=== PATIENT | male | born 1965 | race African-American/Black ===

== ENCOUNTER 2018-01-19 10:28 | Inpatient (IN) | payer MEDICAID ==
[~2018-01-19] VITALS: Ht 198.1 cm; Wt 88.5 kg
[2018-01-19] MEDS ORDERED: ASPIRIN 81MG TABLET PO ONE (11:15)
[2018-01-19 12:00] LABS: HEMATOCRIT. 37.3 % (42.0-52.0); HEMOGLOBIN. 12.7 g/dL (14.0-18.0); MEAN PLATELET VOLUME 6.8 fl (7.4-10.4); PLATELET 280 x1000/uL (130-400); RED BLOOD CELL COUNT 3.73 mill/uL (4.7-6.1); RED CELL DISTRIBUTION WIDTH 12.5 % (11.6-14.6)
[2018-01-19 12:02] LABS: CHLORIDE 100 mEq/L (98-107)
[2018-01-19 12:10] LABS: D-DIMER 1.71 mg/L FEU (<0.50); PARTIAL THROMBOPLASTIN TIME 32.7 sec (23.4-31.0)
[2018-01-19] MEDS ORDERED: SODIUM CHLORIDE 0.9% 1000ML BAG (SEPSIS BOLUS) IV ONE (12:30)
[2018-01-19] MEDS ORDERED: LEVOFLOXACIN 750MG PREMIX 150 ML IV ONE (12:30)
[2018-01-19 12:50] LABS: PLATELET ESTIMATE NORMAL
[2018-01-19] MEDS: NITROGLYCERIN 0.4MG TABLET SL SL PRN ×2 (14:03→16:50)
[2018-01-19] MEDS ORDERED: MORPHINE SULFATE 4 MG/ML CPJ (NOT FOR IM USE) IV ONE (17:00)
[2018-01-19] MEDS ORDERED: ONDANSETRON HCL 4MG/2ML INJ IV ONE (17:00)
[2018-01-19] MEDS ORDERED: MORPHINE SULFATE 10 MG/ML CPJ IV NR (17:15)
[2018-01-19] MEDS ORDERED: IOHEXOL-350 100 ML BOTTLE ONE (17:52)
[2018-01-19] MEDS ORDERED: IBUP-2029 PO (22:44)
[2018-01-19] MEDS ORDERED: CYCL10TA7 PO (22:44)
[2018-01-19 22:58] VITALS: BP 113/68
[2018-01-20] VITALS: BP 110/52
[2018-01-20] MEDS ORDERED: HYDROCODONE/ACETAMINOPHEN 5/325MG TABLET PO PRN
[2018-01-20] MEDS: IPRATROPIUM/ALBUTEROL 0.5-3(2.5)MG/3ML NEB HHN SCH ×6 (01:26→20:48)
[2018-01-20 04:00] VITALS: BP 122/60
[2018-01-20] MEDS ORDERED: GUAIFENESIN-DM 200MG-20MG/10ML UDC PO SCH (06:00)
[2018-01-20 08:00] VITALS: BP 102/65
[2018-01-20] MEDS: ENOXAPARIN 40MG/0.4ML SYR SUBCUT SCH (09:05)
[2018-01-20 12:00] VITALS: BP 103/63
[2018-01-20] MEDS ORDERED: KETOROLAC 30MG/ML VIAL IV PRN (13:15)
[2018-01-20] MEDS: CYCLOBENZAPRINE 10MG TABLET PO SCH ×2 (14:24→21:28)
[2018-01-20 16:00] VITALS: BP 104/64
[2018-01-20] MEDS ORDERED: IPRATROPIUM/ALBUTEROL 0.5-3(2.5)MG/3ML NEB HHN SCH (16:00)
[2018-01-20] MEDS: LEVOFLOXACIN 500MG PREMIX 100 ML IV SCH (16:06)
[2018-01-20] MEDS: ACETAMINOPHEN 325MG TABLET PO PRN (16:50)
[2018-01-20] MEDS: AZITHROMYCIN 500 MG in DEXT 5% WATER 250 ML IV SCH (17:48)
[2018-01-20 18:21] LABS: HEMATOCRIT. 34.9 % (42.0-52.0); HEMOGLOBIN. 11.8 g/dL (14.0-18.0); MEAN CORPUSCULAR HEMOGLOBIN 33.6 pg (28.0-32.0); MEAN CORPUSCULAR VOLUME 99.6 fL (80.0-94.0); MEAN PLATELET VOLUME 6.8 fl (7.4-10.4); PLATELET 295 x1000/uL (130-400); RED BLOOD CELL COUNT 3.51 mill/uL (4.7-6.1); RED CELL DISTRIBUTION WIDTH 12.3 % (11.6-14.6)
[2018-01-20 18:30] LABS: CLARITY URINE CLEAR (CLEAR); COLOR URINE YELLOW (YELLOW); KETONES URINE NEGATIVE (NEGATIVE); LEUKOCYTE ESTERASE URINE NEGATIVE (NEGATIVE); NITRITE URINE NEGATIVE (NEGATIVE); OCCULT BLOOD URINE NEGATIVE (NEGATIVE); PH URINE 6.5 (4.5-8.0); PROTEIN URINE NEGATIVE (NEGATIVE); SPECIFIC GRAVITY URINE 1.005 (1.005-1.030)
[2018-01-20 19:55] VITALS: BP 102/55
[2018-01-21] VITALS: BP 106/63
[2018-01-21 00:30] LABS: PLATELET ESTIMATE NORMAL
[2018-01-21] MEDS: IPRATROPIUM/ALBUTEROL 0.5-3(2.5)MG/3ML NEB HHN SCH ×6 (00:49→20:22)
[2018-01-21 04:00] VITALS: BP 106/57
[2018-01-21] MEDS: CYCLOBENZAPRINE 10MG TABLET PO SCH ×3 (05:45→21:02)
[2018-01-21 07:06] LABS: HEMATOCRIT. 35.2 % (42.0-52.0); HEMOGLOBIN. 11.9 g/dL (14.0-18.0); MEAN CORPUSCULAR HEMOGLOBIN 33.7 pg (28.0-32.0); MEAN CORPUSCULAR VOLUME 99.5 fL (80.0-94.0); MEAN PLATELET VOLUME 6.8 fl (7.4-10.4); PLATELET 304 x1000/uL (130-400); RED BLOOD CELL COUNT 3.54 mill/uL (4.7-6.1); RED CELL DISTRIBUTION WIDTH 12.4 % (11.6-14.6)
[2018-01-21 07:45] LABS: CHLORIDE 102 mEq/L (98-107)
[2018-01-21 08:41] VITALS: BP 118/55
[2018-01-21] MEDS: ENOXAPARIN 40MG/0.4ML SYR SUBCUT SCH (09:52)
[2018-01-21 10:04] LABS: BG CARBOXYHEMOGLOBIN 0.6 % (0.5-1.5); BG DEOXYHEMOGLOBIN 4.1 % (0.0-5.0); BG FRACTION INSPIRED OXYGEN 21; BG HCO3 ACT 27.8 mmol/L (22.0-26.0); BG METHEMOGLOBIN 0.1 % (0.0-1.5); BG OXYGEN SATURATION 95.9 % (92.0-98.5); BG OXYHEMOGLOBIN 95.2 % (94.0-97.0); BG PCO2 38.8 mmHg (35.0-45.0); BG PH 7.473 (7.350-7.450); BG PO2 80.2 mmHg (75.0-100.0); BG SAMPLE SITE RIGHT RADIAL; BG TOTAL HEMOGLOBIN 12.7 g/dL (12.0-18.0); BG VENT MODE ROOM AIR
[2018-01-21 11:57] LABS: PLATELET ESTIMATE NORMAL
[2018-01-21 12:38] VITALS: BP 112/64
[2018-01-21] MEDS: AZITHROMYCIN 500 MG in DEXT 5% WATER 250 ML IV SCH (14:14)
[2018-01-21 16:44] VITALS: BP 105/63
[2018-01-21] MEDS: LEVOFLOXACIN 500MG PREMIX 100 ML IV SCH (16:48)
[2018-01-21] MEDS: GUAIFENESIN/DM 600MG/30MG ER TAB 12HR PO PRN (18:16)
[2018-01-21 20:09] VITALS: BP 102/52
[2018-01-22] VITALS: BP 110/66
[2018-01-22] MEDS: IPRATROPIUM/ALBUTEROL 0.5-3(2.5)MG/3ML NEB HHN SCH ×4 (00:33→12:00)
[2018-01-22 04:00] VITALS: BP 106/50
[2018-01-22] MEDS: CYCLOBENZAPRINE 10MG TABLET PO SCH ×2 (05:47→14:10)
[2018-01-22 08:00] VITALS: BP 101/62
[2018-01-22 08:30] LABS: CHLORIDE 102 mEq/L (98-107)
[2018-01-22 08:37] LABS: HEMATOCRIT. 33.8 % (42.0-52.0); HEMOGLOBIN. 11.5 g/dL (14.0-18.0); MEAN CORPUSCULAR HEMOGLOBIN 33.7 pg (28.0-32.0); MEAN PLATELET VOLUME 6.6 fl (7.4-10.4); PLATELET 326 x1000/uL (130-400); RED BLOOD CELL COUNT 3.42 mill/uL (4.7-6.1); RED CELL DISTRIBUTION WIDTH 12.2 % (11.6-14.6)
[2018-01-22] MEDS: ENOXAPARIN 40MG/0.4ML SYR SUBCUT SCH (08:50)
[2018-01-22] MEDS: GUAIFENESIN/DM 600MG/30MG ER TAB 12HR PO PRN (08:50)
[2018-01-22] MEDS: ACETAMINOPHEN 325MG TABLET PO PRN (08:50)
[2018-01-22] MEDS ORDERED: BENZONATATE 100MG CAPSULE PO PRN (10:45)
[2018-01-22 12:00] VITALS: BP 101/51
[2018-01-22] MEDS ORDERED: NICOTINE 14MG PATCH TD SCH (14:00)
[2018-01-22 14:21] LABS: PLATELET ESTIMATE NORMAL
[2018-01-22 15:39] VITALS: BP 101/51
[2018-01-22 16:00] VITALS: BP 100/58
[2018-01-22] MEDS: LEVOFLOXACIN 500MG PREMIX 100 ML IV SCH (16:00)
== END 2018-01-22 16:55 | disposition home or self-care (01) | DRG 133 ==
LOC: ER 10:28 → 6WST 16:19 → EDBEDREQTM 16:34 → EDBEDREQ 16:34 → ENRESERV 18:50
PROVIDERS: ADMIT Internal Medicine; ATTEND Internal Medicine
DX: J96.00 Acute respiratory failure, unspecified whether with hypoxia or hypercapnia (principal); J18.9 Pneumonia, unspecified organism; E44.1 Mild protein-calorie malnutrition; E87.1 Hypo-osmolality and hyponatremia; J44.0 Chronic obstructive pulmonary disease with (acute) lower respiratory infection; J44.1 Chronic obstructive pulmonary disease with (acute) exacerbation; D53.9 Nutritional anemia, unspecified; R91.8 Other nonspecific abnormal finding of lung field; F17.210 Nicotine dependence, cigarettes, uncomplicated; G89.29 Other chronic pain; M25.561 Pain in right knee; R07.89 Other chest pain; Z68.22 Body mass index [BMI] 22.0-22.9, adult
CPT/HCPCS: 36415; 36600; 71045; 71275; 80048; 82375; 82805; 83605; 83880; 84484; 85379; 87804; 93005; 93306; 94640; 96365; 96366; 96375; 99285; J0456; J1650; J1956; J2270; J2405; J7030; J7050; J7060; J7620; Q9967

== ENCOUNTER 2022-05-20 11:36 | Emergency (ER) | payer MEDICAID ==
[~2022-05-20] VITALS: Ht 198.1 cm; Wt 88.6 kg
[~2022-05-20 11:36] MED LIST: CYCL10TA21 PO; IBUP-2029 PO
[2022-05-20 12:03] VITALS: BP 114/86
[2022-05-20] MEDS ORDERED: HYDROCODONE/ACETAMINOPHEN 5/325MG TABLET PO NR (14:00)
[2022-05-20] MEDS ORDERED: IBUP-2029 MT (14:14)
[2022-05-20] MEDS ORDERED: HYDR-4001 MT (14:14)
== END 2022-05-20 14:55 | disposition home or self-care (01) ==
LOC: ER 11:52
DX: S62.307A Unspecified fracture of fifth metacarpal bone, left hand, initial encounter for closed fracture (principal); W22.01XA Walked into wall, initial encounter; Y93.89 Activity, other specified; Y92.89 Other specified places as the place of occurrence of the external cause; Y99.8 Other external cause status
CPT/HCPCS: 29125; 73130; 99283